=== PATIENT | male | born 1980 | race American Indian/Alaskan Native ===

== ENCOUNTER 2016-11-28 19:30 | Emergency (ER) | payer SELFPAY | END 2016-11-28 20:20 | disposition left against medical advice (07) | LOC: ED 19:30 | DX: F10.129 Alcohol abuse with intoxication, unspecified (principal); Z53.21 Procedure and treatment not carried out due to patient leaving prior to being seen by health care provider ==

== ENCOUNTER 2018-09-22 07:51 | Emergency (ER) | payer SELFPAY ==
--- NOTE | 2018-09-22 09:01 | Emergency Department Report ---
ED Headache HPI - General Chief Complaint: Headache Stated Complaint: HEADACHE/EYE PAIN Time Seen by Provider: 09/22/18 08:40 Source: patient Exam Limitations: no limitations - History of Present Illness Initial Comments: Patient is a 38-year-old male presents to emergency with complaints of left eye swelling and left-sided headache. Patient states his symptoms worsened. Patie nt states the pain is 10 out of 10. Patient states he had some eye discharge for the past week. Patient states all this has been going on for about 2 weeks. Patient denies blurry vision and dizziness. Patient denies neck pain. Patient denies migraine symptoms. Patient denies chest pain shortness of breath. Patient denies fever and chills. Patient states the pain is better with rest and worse with exertion Timing/Duration: other (2 week) Quality: severe, throbbing Head Injury Location: frontal Recent Head Trauma: no recent headache/trauma Modifying Factors: improves with: movement, rest Associated Symptoms: facial pain, nasal congestion, nasal drainage. denies: confusion, fatigue, fever/chills, flushing, loss of consciousness, [place] sea/vomiting, numbness in legs/feet, rash, seizures, sinus infection, stiff neck, vision changes, weakness Allergies/Adverse Reactions: Allergies No Known Allergies Allergy (Unverified 09/22/18 07:56) Home Medications: Ambulatory Orders Amoxicillin [Amoxicillin TAB] 875 mg PO BID 10 Days #20 tablet 09/22/18 Ofloxacin 2 drops OP Q4HR 7 Days #1 drops 09/22/18 Sulfamethoxazole/Trimethoprim [Bactrim Ds Tablet] 1 each PO BID 10 Days #20 tabl et 09/22/18 methylPREDNISolone [Medrol] 4 mg PO DAILY 6 Days #1 tab.ds.pk 09/22/18 ED Review of Systems ROS: Stated complaint: HEADACHE/EYE PAIN Other details as noted in HPI Constitutional: denies: chills, fever Eyes: eye pain. denies: eye discharge, vision change ENT: denies: ear pain, throat pain Respiratory: denies: cough, shortness of breath, wheezing Cardiovascular: denies: chest pain, palpitations Endocrine: no symptoms reported Gastrointestinal: denies: abdominal pain, nausea, diarrhea Genitourinary: denies: urgency, dysuria Musculoskeletal: denies: back pain, joint swelling, arthralgia Skin: denies: rash, lesions Neurological: headache. denies: weakness, paresthesias Psychiatric: denies: anxiety, depression Hematological/Lymphatic: denies: easy bleeding, easy bruising ED Past Medical Hx - Past Medical History Previous Medical History?: No - Surgical History Past Surgical History?: No - Family History Family history: no significant - Social History Smoking Status: Current Every Day Smoker Substance Use Type: None - Medications Home Medications: Home Medications Medication Instructions Recorded Confirmed Last Taken Type Amoxicillin [Amoxicillin TAB] 875 mg PO BID 10 Days #20 tablet 09/22/18 Unknown Rx Ofloxacin 2 drops OP Q4HR 7 Days #1 drops 09/22/18 Unknown Rx Sulfamethoxazole/Trimethoprim 1 each PO BID 10 Days #20 tablet 09/22/18 Unknown Rx [Bactrim Ds Tablet] methylPREDNISolone [Medrol] 4 mg PO DAILY 6 Days #1 tab.ds.pk 09/22/18 Unknown Rx ED Physical Exam - General Limitations: No Limitations General appearance: alert, in no apparent distress - Head Head exam: Present: atraumatic, normocephalic - Eye Eye exam: Present: normal appearance, PERRL, EOMI, periorbital swelling (left eye), periorbital tenderness, other (left lower lid stye noted) Pupils: Present: normal accommodation - ENT ENT exam: Present: mucous membranes moist - Neck Neck exam: Present: normal inspection - Respiratory Respiratory exam: Present: normal lung sounds bilaterally. Absent: respiratory distress - Cardiovascular Cardiovascular Exam: Present: regular rate, normal rhythm. Absent: systolic murmur, diastolic murmur, rubs, gallop - GI/Abdominal GI/Abdominal exam: Present: soft, normal bowel sounds - Rectal Rectal exam: Present: deferred - Extremities Exam Extremities exam: Present: normal inspection - Back Exam Back exam: Present: normal inspection - Neurological Exam Neurological exam: Present: alert, oriented X3 - Psychiatric Psychiatric exam: Present: normal affect, normal mood - Skin Skin exam: Present: warm, dry, intact, normal color. Absent: rash ED Course Vital Signs 09/22/18 09/22/18 09/22/18 07:54 10:05 13:14 Temperature 98.4 F Pulse Rate 66 66 56 L Respiratory 18 18 18 Rate Blood Pressure 164/98 Blood Pressure 138/56 146/100 [Left] O2 Sat by Pulse 97 99 96 Oximetry - Reevaluation(s) Reevaluation #1: Discussed all results with patient. Patient is a well discharged. Discussed plan of care and discharge instructions with patient. Patient agrees and is discharged. Patient to be discharged home. Patient given discharge instructions along with return to ER instructions. Patient voiced understanding of instructions. 09/22/18 10:42 ED Medical Decision Making - Lab Data Result diagrams: 09/22/18 09:22 09/22/18 09:22 - Radiology Data Radiology results: report reviewed CT ORBITS WITHOUT CONTRAST: HISTORY: Ice swelling, headache. TECHNIQUE: Helical CT with sagittal and coronal reformatted images. FINDINGS: The visualized osseous structures are intact without fracture or malalignment. The paranasal sinuses are clear. The nasal septum is midline. The orbital rims are intact. The globes are symmetric with homogeneous density. The retro-orbital fat demonstrates no inflammatory stranding. The extraocular muscles are symmetric. The extraocular muscles and optic nerves demonstrate normal course. IMPRESSION: Unremarkable CT of the orbits. Transcribed By: TTR Dictated By: YADY ALEXIS JR, MD Electronically Authenticated By: YADY ALEXIS JR, MD Signed Date/Time: 09/22/18931 CT HEAD WITHOUT CONTRAST: HISTORY: Headache. TECHNIQUE: Sequential 2.5mm CT images. COMPARISON: none. FINDINGS: Cerebral Parenchyma: Within normal limits. Cerebellum: Within normal limits. Brainstem: Within normal limits. Ventricles: Normal. Sella: Normal. Extra-axial spaces: Normal. Basal Cisterns: Normal. Intracranial Hemorrhage: None. Midline Shift: None. Calvarium: Normal. Sinuses: Normal. Mastoid Air Cells: Normal. Visualized Orbits: Normal. IMPRESSION: Cranial CT scan within normal limits. Transcribed By: TTR Dictated By: YADY ALEXIS JR, MD Electronically Authenticated By: YADY ALEXIS JR, MD Signed Date/Time: 09/22/18 0931 - Medical Decision Making She is 38-year-old L absence emergency room with left eye swelling and pain and headache. The patient said CT is negative. States orbital CT is negative. Patient diagnosed with periorbital cellulitis along with a left lower lid stye. Patient be discharged home oral antibiotics. Patient to follow up with primary care in 2-3 days. Patient given discharge instructions. Patient will also be given Medrol Dosepak. Patient be given medications prior to discharge. - Differential Diagnosis periorbital versus orbital cellulitis. Conjunctivitis. Stye. Headache Critical care attestation.: If time is entered above; I have spent that time in minutes in the direct care of this critically ill patient, excluding procedure time. ED Disposition Clinical Impression: Eye swelling Periorbital cellulitis Qualifiers: Laterality: left Qualified Code(s): L03.213 - Periorbital cellulitis Stye Qualifiers: Laterality: left Eyelid: lower Qualified Code(s): H00.015 - Hordeolum externum left lower eyelid Headache Qualifiers: Headache type: unspecified Headache chronicity pattern: acute headache Intractability: not intractable Qualified Code(s): R51 - Headache Disposition: - TO HOME OR SELFCARE Is pt being admited?: No Does the pt Need Aspirin: No Condition: Stable Instructions: Stye (ED), Periorbital Cellulitis in Children (ED) Additional Instructions: Patient to follow up with primary care in 2-3 days. 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 Patient to return to ER if condition worsens. Patient to increase water. Patient take meds as directed. Patient states on take ibuprofen or Tylenol when necessary for pain. Patient apply warm compress to left side of face and eye 4 times a day Prescriptions: Amoxicillin [Amoxicillin TAB] 875 mg PO BID 10 Days #20 tablet methylPREDNISolone [Medrol] 4 mg PO DAILY 6 Days #1 tab.ds.pk Ofloxacin 2 drops OP Q4HR 7 Days #1 drops Sulfamethoxazole/Trimethoprim [Bactrim Ds Tablet] 1 each PO BID 10 Days #20 tablet Referrals: PRIMARY CARE, [Primary Care Provider] - 2-3 Days Forms: Work/School Release Form(ED) Time of Disposition: 11:06
--- NOTE | 2018-09-22 09:34 | Cat Scan Report ---
CT HEAD WITHOUT CONTRAST: HISTORY: Headache. TECHNIQUE: Sequential 2.5mm CT images. COMPARISON: none. FINDINGS: Cerebral Parenchyma: Within normal limits. Cerebellum: Within normal limits. Brainstem: Within normal limits. Ventricles: Normal. Sella: Normal. Extra-axial spaces: Normal. Basal Cisterns: Normal. Intracranial Hemorrhage: None. Midline Shift: None. Calvarium: Normal. Sinuses: Normal. Mastoid Air Cells: Normal. Visualized Orbits: Normal. IMPRESSION: Cranial CT scan within normal limits.
--- NOTE | 2018-09-22 09:35 | Cat Scan Report ---
CT ORBITS WITHOUT CONTRAST: HISTORY: Ice swelling, headache. TECHNIQUE: Helical CT with sagittal and coronal reformatted images. FINDINGS: The visualized osseous structures are intact without fracture or malalignment. The paranasal sinuses are clear. The nasal septum is midline. The orbital rims are intact. The globes are symmetric with homogeneous density. The retro-orbital fat demonstrates no inflammatory stranding. The extraocular muscles are symmetric. The extraocular muscles and optic nerves demonstrate normal course. IMPRESSION: Unremarkable CT of the orbits.
[2018-09-22 09:37] LABS: Basophils % (Auto) 0.6 % (0.0-1.8); Eosinophils # (Auto) 0.1 K/mm3 (0.0-0.4); Eosinophils % (Auto) 0.8 % (0.0-4.3); Lymphocytes # (Auto) 1.6 K/mm3 (1.2-5.4); Lymphocytes % (Auto) 23.4 % (13.4-35.0); Mean Corpuscular HGB Conc 36 % (32-34); Mean Corpuscular Volume 96 fl (84-94); Monocytes # (Auto) 0.5 K/mm3 (0.0-0.8); Monocytes % (Auto) 7.7 % (0.0-7.3); Platelet Count 163 K/mm3 (140-440); Red Blood Count 4.66 M/mm3 (3.65-5.03); Red Cell Distribution Width 13.4 % (13.2-15.2)
[2018-09-22 09:38] LABS: Hematocrit 44.6 % (35.5-45.6); Hemoglobin 15.9 gm/dl (11.8-15.2)
[2018-09-22 09:54] LABS: Alanine Aminotransferase 38 units/L (7-56); Albumin 4.5 g/dL (3.9-5); BUN/Creatinine Ratio 14; Blood Urea Nitrogen 10 mg/dL (9-20); Calcium 8.9 mg/dL (8.4-10.2); Hemolysis Index 11
[2018-09-22 10:03] LABS: Erythrocyte Sedimentation Rate 1 mm/Hr (0-20)
[2018-09-22] MEDS ORDERED: SOLU-Medrol IV ONE (11:30)
[2018-09-22] MEDS ORDERED: CLEOCIN 300 MG/50 mL 300 MG/50 ML BAG IV ONE (12:00)
[2018-09-22 13:15] VITALS: BP 146/100
== END 2018-09-22 13:15 | disposition home or self-care (01) ==
LOC: ED 07:51
DX: L03.213 Periorbital cellulitis (principal); H00.015 Hordeolum externum left lower eyelid; F17.200 Nicotine dependence, unspecified, uncomplicated
CPT/HCPCS: 36415; 70450; 70480; 80053; 85025; 85652; 96365; 96375; 99284; J2930